=== PATIENT | female | born 1970 | race Caucasian/White ===

== ENCOUNTER 2021-04-16 13:41 | Outpatient (CLI) | payer BC | END 2021-04-16 13:42 | disposition home or self-care (01) | LOC: BICMAMMO 13:41 | PROVIDERS: ATTEND Nurse Practitioner Family | DX: Z12.31 Encounter for screening mammogram for malignant neoplasm of breast (principal); Z80.3 Family history of malignant neoplasm of breast | CPT/HCPCS: 77063; 77067 ==

== ENCOUNTER 2022-11-05 07:18 | Outpatient (CLI) | payer BC ==
[2022-11-05] MEDS ORDERED: Iopamidol 370 76% 100 ML VIAL ONE (10:57)
[2022-11-05] MEDS ORDERED: Magnevist 469MG/ML 20 ML VIAL ONE (11:16)
== END 2022-11-05 07:19 | disposition home or self-care (01) ==
LOC: CT 07:18
PROVIDERS: ATTEND Psychiatry & Neurology Neurology
DX: R53.1 Weakness (principal)
CPT/HCPCS: 70496; 70498; 70553; 93306; A9579; Q9967

== ENCOUNTER 2024-05-10 14:27 | Outpatient (CLI) | payer BC | END 2024-05-10 14:28 | disposition home or self-care (01) | LOC: BICMAMMO 14:27 | PROVIDERS: ATTEND Family Medicine | DX: Z12.31 Encounter for screening mammogram for malignant neoplasm of breast (principal); Z80.3 Family history of malignant neoplasm of breast | CPT/HCPCS: 77063; 77067 ==